=== PATIENT | male | born 1980 | race African-American/Black ===

== ENCOUNTER 2021-08-27 23:44 | Emergency (ER) | payer MEDICAID ==
[~2021-08-27] VITALS: Ht 188 cm; Wt 100.0 kg
[2021-08-28] MEDS ORDERED: IBUPROFEN 600MG TABLET PO STA (01:30)
[2021-08-28] MEDS ORDERED: IBUP-2029 MT (04:58)
[2021-08-28] MEDS ORDERED: METH-653 MT (04:58)
[2021-08-28 05:58] VITALS: BP 133/78
== END 2021-08-28 05:59 | disposition home or self-care (01) ==
LOC: ER 23:44
DX: S16.1XXA Strain of muscle, fascia and tendon at neck level, initial encounter (principal); S39.012A Strain of muscle, fascia and tendon of lower back, initial encounter; X58.XXXA Exposure to other specified factors, initial encounter; Y93.89 Activity, other specified; Y92.89 Other specified places as the place of occurrence of the external cause; Y99.8 Other external cause status
CPT/HCPCS: 72100; 99284

== ENCOUNTER 2021-10-01 15:32 | Emergency (ER) | payer MEDICAID ==
[~2021-10-01] VITALS: Ht 182.9 cm; Wt 104.0 kg
[~2021-10-01 15:32] MED LIST: IBUP-2029 MT; METH-653 MT
[2021-10-01 15:55] VITALS: BP 159/92
== END 2021-10-01 17:32 | disposition home or self-care (01) ==
LOC: ER 15:32
DX: Z02.79 Encounter for issue of other medical certificate (principal)
CPT/HCPCS: 99281